=== PATIENT | female | born 1985 | race Two or more races ===

== ENCOUNTER 2017-09-02 08:35 | Emergency (ER) | payer SELFPAY ==
[2017-09-02] MEDS ORDERED: Amiodarone 150mg/3 ml vial ONE (09:00)
[2017-09-02 09:02] LABS: ABG ALLEN TEST YES; ARTERIAL BLOOD GAS O2 SAT 56.4 % (95-98); ARTERIAL BLOOD GAS PCO2 86 mm/Hg (35-45); ARTERIAL BLOOD GAS PH < 6.80 (7.35-7.45); ARTERIAL BLOOD GAS PO2 39 mm/Hg (80-100)
[2017-09-02 09:17] LABS: ALB/GLOB RATIO 1.1 (1.0-2.1); ALBUMIN 3.2 g/dL (3.5-5.0)
--- NOTE | 2017-09-02 09:56 | ED PDOC ---
HPI: Cardiac Arrest Time Seen by Provider: 09/02/17 09:02 Chief Complaint (Nursing): Cardiac Arrest Chief Complaint (Provider): Cardiac Arrest History Per: EMS Reason For Code Blue: Full Arrest Circumstances: Brought To ED By EMS Arrest Witnessed By: No One CPR Initiated Prior To MD Arrival?: Yes Down-Time Before ACLS: Unknown Treatment Initiated Prior To MD Arrival: CPR, Intubation, Defibrillation Medications Given Prior To MD Arrival: Epinephrine, Sodium Bicarb Additional Complaint(s): Rita is a 32 y/o female last seen alive at 2am today who was found by her family unresponsive at 6am this morning. Patient was known to be drinking heavily last night. EMS worked on patient for 2 hours captain of guards, gave her 2 epis and 1 bicarb. Patient was cardioverted once and defibrillated once. She was intubated captain of guards with mechanical compressions and upon arrival was still unresponsive with no pulse. Last epi was 1 minute captain of guards. PMD: None Provided - Initial Findings Mentation: Unresponsive Respirations: None (Assisted) Pulse: None Past Medical History Reviewed: Unable To Obtain - Family History Family History: States: Unknown Family Hx - Allergies Allergies/Adverse Reactions: Allergies Allergy/AdvReac Type Severity Reaction Status Date / Time Unobtainable Allergy Verified 09/02/17 08:56 Review of Systems Review Of Systems: ROS cannot be obtained secondary to pt's inabilty to answer questions. Physical Exam - Reviewed Nursing Documentation Reviewed: Yes Vital Signs Reviewed: Yes - Physical Exam Appears: Negative for: Well (no obvious spontaneous signs of life) Eye Exam: Negative for: Normal appearance (pupils dilated and fixed b/l) - Laboratory Results Result Diagrams: 09/02/17 08:55 Medical Decision Making Medical Decision Making: Time: 8:57 Initial Impression: Cardiac Arrest Initial Plan: --ABG --CMP --CPR was performed as per ACLS protocol - see meds as per code sheet Scribe Attestation: Documented by Arcenio Das, acting as a scribe for Wendy Koehler MD Provider Scribe Attestation: All medical record entries made by the Scribe were at my direction and personally dictated by me. I have reviewed the chart and agree that the record accurately reflects my personal performance of the history, physical exam, medical decision making, and the department course for this patient. I have also personally directed, reviewed, and agree with the discharge instructions and disposition. Disposition - Clinical Impression Clinical Impression: Cardiac arrest - Patient ED Disposition Is Patient to be Admitted: No - Disposition Disposition Time: 09:00 Condition:
== END 2017-09-02 11:03 ==
LOC: H.ER 08:35
DX: I46.9 Cardiac arrest, cause unspecified (principal)
CPT/HCPCS: 80053; 82803; 82948; 92950; 99285; J0171; J0282